=== PATIENT | male | born 1930 | race Caucasian/White ===

== ENCOUNTER 2018-09-10 10:23 | Day surgery (SDC) | payer OTHER ==
[2018-09-09 08:05] VITALS: BMI 25.8
[~2018-09-10 10:23] MED LIST: LIDOCAINE HCL 1%, 10 MG/ML (20ML VIAL) INF ONE; ceFAZolin SODIUM 1 GM VIAL IVPB ONE
[2018-09-10] MEDS ORDERED: LIDOCAINE HCL 1%, 10 MG/ML (20ML VIAL) ONE (11:36)
[2018-09-10] MEDS ORDERED: ceFAZolin SODIUM 1 GM VIAL IVPB ONE (13:00)
[2018-09-10] MEDS ORDERED: MIDAZOLAM HCL 2 MG/2 ML SINGLE DOSE VIAL ONE (13:01)
[2018-09-10] MEDS ORDERED: SUCCINYLCHOLINE CHLORIDE 200 MG/10 ML SYRINGE ONE (13:02)
[2018-09-10] MEDS ORDERED: PROPOFOL 20 ML ONE (13:02)
[2018-09-10] MEDS ORDERED: LIDOCAINE HCL 1%, 10 MG/ML (20ML VIAL) INF ONE (13:09)
[2018-09-10] MEDS ORDERED: ACETAMINOPHEN INJECTION 100 ML IVPB ONE (13:42)
[2018-09-10] MEDS ORDERED: ACETAMINOPHEN 1000 MG/100 ML VIAL (NON FORMULARY) IVPB ONE (13:45)
[2018-09-10 15:42] VITALS: TEMP 97.4
[2018-09-10 17:05] VITALS: BP 118/50; PULSE 61
--- NOTE | 2018-09-14 11:53 | PATH ---
Surgical Pathology Report Patient Name: HILARIO PRICE [facility]. Rec. #: [id number] /Age/Gender: 1930 (Age: 88) / F Account: [id number] Location: [facility] SUR[facility] Taken: 09/10/2018 Received: 09/13/2018 Reported: 09/14/2018 Physicians: Esteban Iyer DPM Specimen(s) Received BONE AND SOFT TISSUE, 2ND TOE, FOOT, LEFT, Clinical History Osteomyelitis left second toe Final Diagnosis BONE AND SOFT TISSUE, 2ND TOE, FOOT, LEFT, AMPUTATION: DIGIT WITH MARKED ACUTE AND CHRONIC INFLAMMATION WITH ASSOCIATED ULCERATION. UNDERLYING BONE WITH ACUTE AND CHRONIC OSTEOMYELITIS. BONE, SKIN, AND SOFT TISSUE MARGINS ARE VIABLE. Electronically Signed Ana Lechuga M.D. Gross Description Received in formalin labeled "bone and soft tissue second toe left foot," is a 4.8 x 1.7 x 1.6 cm toe amputation. The epidermal surface displays a 1.0 x 1.0 cm menendez, ulcerated lesion on the dorsal aspect, 1.4 cm from the skin and soft tissue margin. The lesion appears to involve the underlying bone. Internal Combustion Engineer sections are submitted in 3 cassettes as follows: 1-lesion with underlying bone, following decalcification; 2-bone margin, following decalcification; 3-skin and soft tissue margin. /09/13/201809/13/2018
--- NOTE | 2018-10-21 11:21 | OP ---
DATE OF OPERATION: 09/10/2018 PREOPERATIVE DIAGNOSIS: Osteomyelitis of left 2nd toe with ulcer and cellulitis. POSTOPERATIVE DIAGNOSIS: Osteomyelitis of left 2nd toe with ulcer and cellulitis. PROCEDURE: Amputation, left 2nd toe at the level of the metatarsophalangeal joint. Patient was prepped and draped in the usual manner and sent to the OR in stable condition. MAC sedation was administered with local anesthetic infiltrate. Foot was prepped and draped in the usual manner with ankle tourniquet inflated to 250 mmHg. Upon achieving complete anesthesia, utilizing a sharp, sterile number-15 blade, the left 2nd toe was disarticulated at the level of the metatarsophalangeal joint and removed in toto and sent down for both pathology and bacteriology. Once all clean margins were noted, the wound was then flushed out with copious amounts of sterile bacteriostatic water, and the skin was closed with a combination of 4-0 nylon and 4-0 Vicryl suture for the subcutaneous closure and 4-0 nylon suture for skin in a simple interrupted fashion. Postop anesthesia was administered of 8 mL Marcaine plain 0.25%. Patient was stable throughout the entire procedure and sent to PACU in stable condition, where he and his were given all postop directions both verbal and in written form. SHANNON [id number] / [id number]
== END 2018-09-10 16:40 | disposition home or self-care (01) ==
LOC: JASU-SURG 10:23 → EDSEX 12:00 → JASU-SURG 16:40
PROVIDERS: ATTEND Podiatrist Foot Surgery
PROC: 0Y6S0Z0 Detachment at Left 2nd Toe, Complete, Open Approach (ICD-10-PCS; principal; 2018-09-10 12:00)
DX: M86.8X7 Other osteomyelitis, ankle and foot (principal); L03.818 Cellulitis of other sites; I10 Essential (primary) hypertension; E11.9 Type 2 diabetes mellitus without complications; Z79.84 Long term (current) use of oral hypoglycemic drugs
CPT/HCPCS: 82962; 88305-TC; 88311-TC; 94760; J0131

== ENCOUNTER 2018-12-29 06:54 | Day surgery (SDC) | payer OTHER ==
[2018-12-29 07:44] VITALS: BMI 26.4
[2018-12-29] MEDS ORDERED: LIDOCAINE HCL 1%, 10 MG/ML (20ML VIAL) ONE (08:01)
--- NOTE | 2018-12-29 09:33 | HP ---
History & Physical Update - History Currently as noted:: S/p bypass left tibial artery - Physical Currently as noted:: Open wound at amputation site with exposed metatarsal head. - Assessment Currently as noted:: Non-healing ampuatation wound left 2nd toe - Plan Currently as noted:: Metatarsal head resection.
[2018-12-29] MEDS ORDERED: PROPOFOL 20 ML ONE ×2 (09:36→09:40)
[2018-12-29] MEDS ORDERED: KETAMINE HCL 200 MG/20 ML VIAL ONE (09:41)
[2018-12-29] MEDS ORDERED: AMPICILLIN NA/SULBACTAM NA 3 GM VIAL IVPB ONE (09:42)
[2018-12-29] MEDS ORDERED: LIDOCAINE HCL 1%, 10 MG/ML (20ML VIAL) NR ONE ×2 (09:46)
[2018-12-29] MEDS ORDERED: ACETAMINOPHEN WITH CODEINE 300MG/30MG TABLET PO PRN (10:19)
--- NOTE | 2018-12-29 10:19 | OP ---
Operative Note - Note: Operative Date: 12/29/18 Pre-Operative Diagnosis: Non-healing amputation wound left 2nd toe Operation: Open 2nd metatarsal head resection left 2nd toe. Debridment incisional wound left calf. Findings: Necrotic subcutaneous tissue and exposed metatarsal head and cartilage. Post-Operative Diagnosis: Same as Pre-op Surgeon: Marino Awan Anesthesiologist/DYE BOX OPERATOR: Jose Cortes Anesthesia: Fractional Specimens Removed: Left 2nd metatarsal head
[2018-12-29 12:04] VITALS: TEMP 98
[2018-12-29 13:02] VITALS: BP 116/55; PULSE 61
[2018-12-29] MEDS ORDERED: oxyCODONE HCL 5 MG TABLET PO PRN (14:01)
[2018-12-29] MEDS ORDERED: ONDANSETRON 4 MG/2 ML VIAL IVPUSH PRN (14:01)
[2018-12-29] MEDS ORDERED: LACTATED RINGERS SOLUTION 1,000 ML IV SCH (14:15)
--- NOTE | 2018-12-29 21:12 | OP ---
DATE OF OPERATION: 12/29/2018 PROCEDURE: Open 2nd metatarsal head resection, left 2nd toe, and debridement of incisional wound to the left calf. PREOPERATIVE DIAGNOSIS: Nonhealing amputation wound, left 2nd toe with subcutaneous abscess left calf incision. POSTOPERATIVE DIAGNOSIS: Nonhealing amputation wound, left 2nd toe with subcutaneous abscess left calf incision. ANESTHESIA: Fractional. ANESTHESIOLOGIST: Jose Cortes MD OPERATIVE FINDINGS: There was necrotic tissues around the edges of the wound over the site of the previous left 2nd toe amputation. The metatarsal head was exposed at the base of the wound with exposed cartilage. A small wound was present in the incision line in the left calf from previous bypass surgery. There was necrotic subcutaneous tissue with no pus seen. OPERATIVE PROCEDURE: Following routine patient identification with side and site verification, intravenous sedation was established. The left foot and calf were prepped with Betadine solution. Time-out was performed, 1% lidocaine was infiltrated in the skin the dorsal and plantar aspect of the 2nd toe wound. The wound was extended proximally and distally onto the plantar skin and dorsum of the foot and subcutaneous tissues divided using cautery. Debridement of nonviable tissue in the wound was performed with a No. 15 scalpel blade, and the metatarsal head was exposed with cautery. The bone was transected and the metatarsal head and cartilage removed. Additional soft tissue debridement was performed to remove additional joint capsule and nonviable tissue. The wound was irrigated with saline. The proximal and distal ends of the wounds were closed with interrupted suture of 3-0 nylon, and the central portion of the wound was packed with iodoform gauze. A sterile dressing was applied. The calf wound was then incised and subcutaneous tissues debrided with curette to remove loose, necrotic tissue. There was no purulent fluid noted. The wound was packed with iodoform gauze and a Kerlix wrap applied, and the patient was taken to recovery room in stable condition. Yoko [id number]
--- NOTE | 2019-01-03 12:49 | PATH ---
Surgical Pathology Report Patient Name: ALBERT RICH Med. Rec. #: [id number] /Age/Gender: 1930 (Age: 88) / M Account: [id number] Location: [facility] SURGICAL Taken: 12/29/2018 Received: 12/30/2018 Reported: 01/03/2019 Physicians: Marino Awan M.D. Specimen(s) Received SECOND METATARSAL HEAD AND DEBRIDED TISSUE, LEFT Clinical History Left foot second digit toe wound Final Diagnosis SECOND METATARSAL HEAD AND DEBRIDED TISSUE, LEFT, RESECTION, INCISION AND DRAINAGE: PORTION OF BONE WITH SEVERE ACUTE AND PATCHY CHRONIC OSTEOMYELITIS, EXTENDING TO SURGICAL MARGIN. DENSE FIBROCONNECTIVE AND ADIPOSE TISSUE WITH MARKED ACUTE INFLAMMATION. Electronically Signed Ana Lechuga M.D. Gross Description Received in formalin labeled "left second metatarsal head and debrided tissue," is a 2.3 x 1.3 x 1.1 cm menendez portion of bone with smooth trabecular cartilage at one end. Separately received within the same container is a 3.7 x 2.3 x 0.6 cm aggregate of menendez soft tissue fragments. Glaze Carrier sections are submitted in 3 cassettes as follows: 1-end of bone with smooth articular cartilage, following decalcification; 2-end of bone with trabecular bone, following decalcification; 3-separately received soft tissue fragments. /12/30/201812/30/2018
== END 2018-12-29 12:40 | disposition home health service (06) ==
LOC: JASU-SURG 06:54
PROVIDERS: ATTEND Surgery
PROC: 0JBP0ZZ Excision of Left Lower Leg Subcutaneous Tissue and Fascia, Open Approach (ICD-10-PCS; 2018-12-29)
PROC: 0QBP0ZZ Excision of Left Metatarsal, Open Approach (ICD-10-PCS; principal; 2018-12-29 09:00)
DX: T87.44 Infection of amputation stump, left lower extremity (principal); T81.41XA Infection following a procedure, superficial incisional surgical site, initial encounter; M86.172 Other acute osteomyelitis, left ankle and foot; B99.8 Other infectious disease; Y83.8 Other surgical procedures as the cause of abnormal reaction of the patient, or of later complication, without mention of misadventure at the time of the procedure; Y83.5 Amputation of limb(s) as the cause of abnormal reaction of the patient, or of later complication, without mention of misadventure at the time of the procedure; Y92.9 Unspecified place or not applicable
CPT/HCPCS: 82962; 88305-TC; 88311-TC; 94760